=== PATIENT | female | born 1960 | race Caucasian/White ===

== ENCOUNTER 2017-04-24 08:18 | Day surgery (SDC) | payer OTHER ==
[2017-04-24 09:46] VITALS: TEMP 97.2; O2SAT 99
[2017-04-24] MEDS ORDERED: Propofol 10 mg/ml Inj (20 ML) ONE (10:12)
[2017-04-24] MEDS ORDERED: Midazolam 2 MG/2 ML VIAL ONE (10:12)
[2017-04-24] MEDS ORDERED: Lactated Ringer's 1,000 ML IV ONE (11:06)
[2017-04-24 11:48] VITALS: BP 120/70; PULSE 87; RESP 16
== END 2017-04-24 12:14 | disposition home or self-care (01) ==
LOC: H.ENDO 08:18
PROVIDERS: ATTEND Internal Medicine Gastroenterology
DX: K31.9 Disease of stomach and duodenum, unspecified (principal); R10.13 Epigastric pain
CPT/HCPCS: 43239; 88305; J2250; J2704; J7120

== ENCOUNTER 2017-08-01 13:17 | Observation (INO) | payer OTHER ==
[2017-08-01 13:25] VITALS: BMI 34.7
[2017-08-01] MEDS ORDERED: Sodium Chloride 0.9% 1,000 ML IV STA (13:44)
--- NOTE | 2017-08-01 13:44 | ED PDOC ---
HPI: Chest Pain Time Seen by Provider: 08/01/17 13:33 Chief Complaint (Nursing): Chest Pain Chief Complaint (Provider): Chest pain History Per: Patient History/Exam Limitations: no limitations Onset/Duration Of Symptoms: Days (2) Current Symptoms Are (Timing): Still Present Additional Complaint(s): Pt. with chest pain left side. Goes to left shoulder. No weakness, numbness, tingles. No dyspnea, vision changes. No abd pain, nausea, vomit, diarrhea. No fever, neck pain. No long distance travel, hormone tx. No loeg pain. Past Medical History Reviewed: Nursing Documentation, Vital Signs Vital Signs: Last Vital Signs Temp 98.2 F 08/01/17 13:26 Pulse 99 H 08/01/17 13:26 Resp 16 08/01/17 13:26 BP 155/86 H 08/01/17 14:39 Pulse Ox 98 08/01/17 13:44 - Medical History PMH: HTN - Surgical History Surgical History: No Surg Hx - Family History Family History: States: Unknown Family Hx - Living Arrangements Living Arrangements: With Family - Social History Alcohol: None Drugs: Denies - Home Medications Home Medications: Ambulatory Orders Medication Instructions Recorded Ascorbic Acid [Vitamin C 500 mg 1 tab PO DAILY 08/01/17 Tab] Metoprolol Succinate [Toprol XL] 50 mg PO DAILY 08/01/17 Multivitamin/Iron/Folic Acid 1 tab PO DAILY 08/01/17 [Centrum Complete Multivit Tab] hydroCHLOROthiazide [Hydrodiuril] 25 mg PO DAILY 08/01/17 - Allergies Allergies/Adverse Reactions: Allergies Allergy/AdvReac Type Severity Reaction Status Date / Time EGGPLANT Allergy SHORTNESS Uncoded 04/24/17 09:39 OF BREATH Review of Systems ROS Statement: Except As Marked, All Systems Reviewed And Found Negative Cardiovascular: Positive for: Chest Pain Physical Exam - Reviewed Nursing Documentation Reviewed: Yes Vital Signs Reviewed: Yes - Physical Exam Appears: Positive for: Non-toxic, No Acute Distress Head Exam: Positive for: ATRAUMATIC, NORMAL INSPECTION, NORMOCEPHALIC Skin: Positive for: Normal Color, Warm, DRY Eye Exam: Positive for: EOMI, Normal appearance, PERRL ENT: Positive for: Normal ENT Inspection Neck: Positive for: Normal, Painless ROM Cardiovascular/Chest: Positive for: Regular Rate, Rhythm, Chest Non Tender. Negative for: Edema Respiratory: Positive for: CNT, Normal Breath Sounds Gastrointestinal/Abdominal: Positive for: Normal Exam, Bowel Sounds, Soft Back: Positive for: Normal Inspection. Negative for: L CVA Tenderness, R CVA Tenderness Extremity: Positive for: Normal ROM. Negative for: Tenderness, Pedal Edema Neurologic/Psych: Positive for: Alert, Oriented - Laboratory Results Result Diagrams: 08/01/17 14:29 08/01/17 14:29 Interpretation Of Abn Labs: no acute - ECG ECG: Positive for: Interpreted By Me, Viewed By Me ECG Rhythm: Positive for: Normal QRS, Normal ST Segment, Sinus Rhythm O2 Sat by Pulse Oximetry: 98 Pulse Ox Interpretation: Normal - Radiology X-Ray: Read By Radiologist X-Ray Interpretation: No Acute Disease - Progress ED Course And Treament: 1523: Stable. AAOx3. Pain free. 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 Garcia. Will admit obs tele. Disposition - Clinical Impression Clinical Impression: Chest pain - Patient ED Disposition Is Patient to be Admitted: No Counseled Patient/Family Regarding: Studies Performed, Diagnosis - Disposition Disposition Time: 15:32 Condition: FAIR - Pt Status Changed To: Hospital Disposition Of: Observation - POA Present On Arrival: None Core Measure Indicators: Chest Pain
--- NOTE | 2017-08-01 14:04 | RAD ---
HISTORY: pain COMPARISON: Chest radiograph dated 02/07/2013 FINDINGS: LUNGS: Prominence of pulmonary vasculature may be secondary to AP technique and/or pulmonary vascular congestion. No focal consolidation. PLEURA: No significant pleural effusion identified, no pneumothorax apparent. CARDIOVASCULAR: Normal. OSSEOUS STRUCTURES: Unchanged. VISUALIZED UPPER ABDOMEN: Normal. OTHER FINDINGS: None. IMPRESSION: Prominence of the pulmonary vasculature may be secondary to AP technique and/or pulmonary vascular congestion. No focal consolidation or pleural effusion.
[2017-08-01] MEDS ORDERED: Morphine 4 MG/ML VIAL ONE (14:31)
[2017-08-01 14:37] LABS: BASO % 0.4 % (0.0-2.0); EOS # 0.1 K/uL (0.0-0.7); EOS % 1.6 % (0.0-4.0); HEMOGLOBIN 14.7 g/dL (12.0-16.0); LYMPH # 2.1 K/uL (1.0-4.3); LYMPH % 22.8 % (20.0-40.0); MEAN CORPUSCULAR HEMOGLOBIN 30.8 pg (27.0-31.0); MEAN CORPUSCULAR HGB CONC 34.2 g/dL (33.0-37.0); MEAN PLATELET VOLUME 9.7 fl (7.2-11.7); MONO # 0.5 K/uL (0.0-0.8); MONO % 5.5 % (0.0-10.0); NEUT # 6.5 K/uL (1.8-7.0); NEUT % 69.7 % (50.0-75.0); RBC 4.78 Mil/uL (3.80-5.20); RED CELL DISTRIBUTION WIDTH 14.5 % (11.5-14.5); WHITE BLOOD COUNT 9.3 K/uL (4.8-10.8)
[2017-08-01 14:49] LABS: PARTIAL THROMBOPLASTIN TIME 40.4 Seconds (25.6-37.1)
[2017-08-01 15:07] LABS: ALB/GLOB RATIO 1.1 (1.0-2.1); ALBUMIN 4.7 g/dL (3.5-5.0); ALT/SGPT 66 U/L (9-52); AST/SGOT 57 U/L (14-36); B-TYPE NATRIURETIC PEPTIDE 28.6 pg/ml (0-900); BLOOD UREA NITROGEN 13 mg/dl (7-17); CALCIUM 9.8 mg/dL (8.4-10.2); GFR AFRICAN-AMERICAN > 60; GFR NON-AFRICAN AMERICAN > 60
--- NOTE | 2017-08-01 16:41 | CP.PCM.HP ---
History of Present Illness - History of Present Illness History of Present Illness: 57 yo female with history of HTN came in complaining of palpitation and chest pain associated with numbness of the left arm since 3 days ago. Denied nausea or vomiting. Also denied SOB, fever or chills. Present on Admission - Present on Admission Any Indicators Present on Admission: No History of DVT/PE: No History of Uncontrolled Diabetes: No Urinary Catheter: No Decubitus Ulcer Present: No Review of Systems - Review of Systems All systems: reviewed and no additional remarkable complaints except (aside from those mentioned above, 14 point system review were negative by me) Past Patient History - Tetanus Immunizations Tetanus Immunization: Unknown - Past Medical History & Family History Past Medical History?: Yes - Past Social History Smoking Status: Never Smoked Alcohol: None Drugs: Denies Home Situation {Lives}: With Family - CARDIAC Hx Hypertension: Yes - PSYCHIATRIC Hx Substance Use: No - SURGICAL HISTORY Hx Surgeries: No - ANESTHESIA Hx Anesthesia: No Meds Allergies/Adverse Reactions: Allergies Allergy/AdvReac Type Severity Reaction Status Date / Time EGGPLANT Allergy SHORTNESS Uncoded 04/24/17 09:39 OF BREATH Physical Exam - Constitutional Appears: No Acute Distress - Head Exam Head Exam: ATRAUMATIC - Eye Exam Eye Exam: absent: Scleral icterus - ENT Exam ENT Exam: Mucous Membranes Moist - Neck Exam Neck exam: Negative for: Meningismus - Respiratory Exam Respiratory Exam: absent: Chest Wall Tenderness, Rales, Rhonchi, Wheezes, Respiratory Distress - Cardiovascular Exam Cardiovascular Exam: Tachycardia - GI/Abdominal Exam GI & Abdominal Exam: Soft. absent: Tenderness - Rectal Exam Rectal Exam: Deferred - Extremities Exam Extremities exam: Negative for: calf tenderness, pedal edema - Back Exam Back exam: absent: tenderness - Neurological Exam Neurological exam: Alert, Oriented x3 - Psychiatric Exam Psychiatric exam: Normal Affect - Skin Skin Exam: Dry, Intact Results - Vital Signs Recent Vital Signs: Last Vital Signs Temp 98.8 F 08/01/17 16:01 Pulse 98 H 08/01/17 16:01 Resp 18 08/01/17 16:01 BP 107/67 08/01/17 16:01 Pulse Ox 97 08/01/17 16:01 - Labs Result Diagrams: 08/01/17 14:29 08/01/17 14:29 Labs: Laboratory Results - last 24 hr 08/01/17 08/01/17 08/01/17 14:29 14:29 14:29 WBC 9.3 RBC 4.78 Hgb 14.7 Hct 43.0 MCV 90.0 D MCH 30.8 MCHC 34.2 RDW 14.5 Plt Count 193 MPV 9.7 Neut % (Auto) 69.7 Lymph % (Auto) 22.8 [place] % (Auto) 5.5 Eos % (Auto) 1.6 Baso % (Auto) 0.4 Neut # (Auto) 6.5 Lymph # (Auto) 2.1 [place] # (Auto) 0.5 Eos # (Auto) 0.1 Baso # (Auto) 0.0 PT 11.0 INR 1.0 APTT 40.4 H Sodium 138 Potassium 3.9 Chloride 94 L Carbon Dioxide 27 Anion Gap 21 H BUN 13 Creatinine 0.6 L Est GFR ( Amer) > 60 Est GFR (Non-Af Amer) > 60 Random Glucose 117 H Calcium 9.8 Total Bilirubin 0.9 AST 57 H ALT 66 H D Alkaline Phosphatase 70 Troponin I < 0.0120 NT-Pro-B Natriuret Pep 28.6 Total Protein 9.0 H Albumin 4.7 Globulin 4.3 H Albumin/Globulin Ratio 1.1 Assessment & Plan - Assessment and Plan (Free Text) Assessment: 57 yo female with history of HTN came in complaining of palpitation and chest pain associated with numbness of the left arm since 3 days ago. Denied nausea or vomiting. Also denied SOB, fever or chills. 1. Chest Pain place on chest pain observation ASA 325mg PO serial Troponin Lipid profile 2. HTN BP stable Metoprol Succinate 50mg PO daily HCTZ 25mg PO daily
[2017-08-02 04:42] VITALS: TEMP 98.2
[2017-08-02 05:27] LABS: BASO % 0.6 % (0.0-2.0); EOS # 0.3 K/uL (0.0-0.7); EOS % 4.2 % (0.0-4.0); HEMOGLOBIN 14.3 g/dL (12.0-16.0); LYMPH # 3.2 K/uL (1.0-4.3); LYMPH % 42.2 % (20.0-40.0); MEAN CELL VOLUME 89.6 fl (81.0-99.0); MEAN CORPUSCULAR HEMOGLOBIN 31.5 pg (27.0-31.0); MEAN CORPUSCULAR HGB CONC 35.1 g/dL (33.0-37.0); MEAN PLATELET VOLUME 9.8 fl (7.2-11.7); MONO # 0.6 K/uL (0.0-0.8); MONO % 8.5 % (0.0-10.0); NEUT # 3.4 K/uL (1.8-7.0); NEUT % 44.5 % (50.0-75.0); NRBC % 0.2 % (0.0-0.0); RBC 4.56 Mil/uL (3.80-5.20); RED CELL DISTRIBUTION WIDTH 14.3 % (11.5-14.5); WHITE BLOOD COUNT 7.6 K/uL (4.8-10.8)
[2017-08-02 05:54] LABS: BLOOD UREA NITROGEN 10 mg/dl (7-17); CALCIUM 9.3 mg/dL (8.4-10.2); GFR AFRICAN-AMERICAN > 60; GFR NON-AFRICAN AMERICAN > 60
--- NOTE | 2017-08-02 08:07 | CP.PCM.DIS ---
Provider - Provider Date of Admission: 08/01/17 15:30 Attending physician: Aleksandar Garcia MD Primary care physician: Dr. Andujar Time Spent in preparation of Discharge (in minutes): 15 Hospital Course - Lab Results Lab Results: Most Recent Lab Values WBC 7.6 K/uL (4.8-10.8) 08/02/17 04:20 RBC 4.56 Mil/uL (3.80-5.20) 08/02/17 04:20 Hgb 14.3 g/dL (12.0-16.0) 08/02/17 04:20 Hct 40.8 % (34.0-47.0) 08/02/17 04:20 MCV 89.6 fl (81.0-99.0) 08/02/17 04:20 MCH 31.5 pg (27.0-31.0) H 08/02/17 04:20 MCHC 35.1 g/dL (33.0-37.0) 08/02/17 04:20 RDW 14.3 % (11.5-14.5) 08/02/17 04:20 Plt Count 208 K/uL (130-400) 08/02/17 04:20 MPV 9.8 fl (7.2-11.7) 08/02/17 04:20 Neut % (Auto) 44.5 % (50.0-75.0) L 08/02/17 04:20 Lymph % (Auto) 42.2 % (20.0-40.0) H 08/02/17 04:20 [place] % (Auto) 8.5 % (0.0-10.0) 08/02/17 04:20 Eos % (Auto) 4.2 % (0.0-4.0) H 08/02/17 04:20 Baso % (Auto) 0.6 % (0.0-2.0) 08/02/17 04:20 Neut # (Auto) 3.4 K/uL (1.8-7.0) 08/02/17 04:20 Lymph # (Auto) 3.2 K/uL (1.0-4.3) 08/02/17 04:20 [place] # (Auto) 0.6 K/uL (0.0-0.8) 08/02/17 04:20 Eos # (Auto) 0.3 K/uL (0.0-0.7) 08/02/17 04:20 Baso # (Auto) 0.0 K/uL (0.0-0.2) 08/02/17 04:20 PT 11.0 Seconds (9.8-13.1) 08/01/17 14:29 INR 1.0 (0.9-1.2) 08/01/17 14:29 APTT 40.4 Seconds (25.6-37.1) H 08/01/17 14:29 Sodium 144 mmol/l (132-148) 08/02/17 04:20 Potassium 3.7 MMOL/L (3.6-5.0) 08/02/17 04:20 Chloride 100 mmol/L (98-107) 08/02/17 04:20 Carbon Dioxide 30 mmol/L (22-30) 08/02/17 04:20 Anion Gap 18 (10-20) 08/02/17 04:20 BUN 10 mg/dl (7-17) 08/02/17 04:20 Creatinine 0.6 mg/dl (0.7-1.2) L 08/02/17 04:20 Est GFR ( Amer) > 60 08/02/17 04:20 Est GFR (Non-Af Amer) > 60 08/02/17 04:20 Random Glucose 99 mg/dL (65-105) 08/02/17 04:20 Calcium 9.3 mg/dL (8.4-10.2) 08/02/17 04:20 Total Bilirubin 0.9 mg/dl (0.2-1.3) 08/01/17 14:29 AST 57 U/L (14-36) H 08/01/17 14:29 ALT 66 U/L (9-52) H D 08/01/17 14:29 Alkaline Phosphatase 70 U/L (38-126) 08/01/17 14:29 Troponin I < 0.0120 ng/mL (0.00-0.120) 08/02/17 04:20 NT-Pro-B Natriuret Pep 28.6 pg/ml (0-900) 08/01/17 14:29 Total Protein 9.0 G/DL (6.3-8.2) H 08/01/17 14:29 Albumin 4.7 g/dL (3.5-5.0) 08/01/17 14:29 Globulin 4.3 gm/dL (2.2-3.9) H 08/01/17 14:29 Albumin/Globulin Ratio 1.1 (1.0-2.1) 08/01/17 14:29 - Hospital Course Hospital Course: 57 yo female with history of HTN ,overweight came in complaining of palpitation and chest pain associated with numbness of the left arm since 3 days ago. Denied nausea or vomiting. Also denied SOB, fever or chills. Patient was placed under observation in telemetry to rule out chest pain . Troponins were cycled x3 were negative Patient at present is hemodynamically stable, chest pain free . Will discharge patient home to follow up with PMD in 1 week 1. Sinus tachycardia continue metoprolol 2. Atypical Chest Pain 3. HTN 4.Overweight BMI 34 Discharge Exam - Head Exam Head Exam: ATRAUMATIC, NORMAL INSPECTION, NORMOCEPHALIC - Eye Exam Eye Exam: EOMI, Normal appearance, PERRL Pupil Exam: NORMAL ACCOMODATION - ENT Exam ENT Exam: Mucous Membranes Moist, Normal Exam - Neck Exam Neck exam: Full Rom, Normal Inspection - Respiratory Exam Respiratory Exam: Clear to PA & Lateral, NORMAL BREATHING PATTERN. absent: Rales, Rhonchi, Wheezes - Cardiovascular Exam Cardiovascular Exam: REGULAR RHYTHM, RRR, +S1, +S2. absent: JVD - GI/Abdominal Exam GI & Abdominal Exam: Normal Bowel Sounds, Soft. absent: Distended, Guarding, Rebound, Tenderness - Rectal Exam Rectal Exam: Deferred - Extremities Exam Extremities exam: normal capillary refill, normal inspection, pedal pulses present - Back Exam Back exam: NORMAL INSPECTION - Neurological Exam Neurological exam: Alert, CN II-XII Intact, Oriented x3, Reflexes Normal - Psychiatric Exam Psychiatric exam: Normal Affect, Normal Mood - Skin Skin Exam: Dry, Intact, Normal Color, Warm Discharge Plan - Follow Up Plan Condition: STABLE Disposition: HOME/ ROUTINE Patient education suggested?: Yes Instructions: Chest Pain (DC)
[2017-08-02 08:12] VITALS: BP 127/80; RESP 20; O2SAT 97
[2017-08-02] MEDS ORDERED: Multivitamin With Minerals Tab PO SCH (09:00)
[2017-08-02] MEDS ORDERED: Enoxaparin 40 mg Syringe SC SCH (09:00)
[2017-08-02] MEDS ORDERED: Pantoprazole 40 mg EC Tab PO SCH (09:00)
[2017-08-02] MEDS ORDERED: Patient's Own Med (Multivitamin/Iron/Folic Acid [Centrum Complete Multivit Tab] 1 TAB) PO SCH (09:00)
[2017-08-02] MEDS ORDERED: Metoprolol Succinate 50 mg XL Tab PO SCH (09:00)
[2017-08-02 09:43] VITALS: PULSE 99
--- NOTE | 2017-08-02 12:12 | CARD ---
APPROVED REPORT EKG Measurement Heart [id number] <Conclusion> Sinus tachycardia Otherwise normal ECG
== END 2017-08-02 09:57 | disposition home or self-care (01) ==
LOC: H.ER 13:17 → H.ERHOLD 15:30 → H.TEL 17:27
DX: R00.0 Tachycardia, unspecified (principal); R07.89 Other chest pain; I10 Essential (primary) hypertension; E66.3 Overweight; Z68.34 Body mass index [BMI] 34.0-34.9, adult; Z91.018 Allergy to other foods; R20.0 Anesthesia of skin
CPT/HCPCS: 36415; 71045; 80048; 80053; 83880; 84484; 85025; 85610; 85730; 93005; 99285; G0378; J2270; J7040